=== PATIENT | male | born 1995 | race Caucasian/White ===

== ENCOUNTER 2018-05-22 20:43 | Emergency (ER) | payer OTHER ==
[2018-05-22] MEDS ORDERED: Lidocaine 1% 10 ML MDV INJECT ONE (22:13)
[2018-05-22] MEDS ORDERED: Lidocaine 1% 10 ML MDV ONE (22:35)
--- NOTE | 2018-05-22 23:00 | EDM.PDOC ---
ED HPI GENERAL MEDICAL PROBLEM - General Chief Complaint: Upper Extremity Injury/Pain Stated Complaint: LACERATION TO HAND Time Seen by Provider: 05/22/18 20:56 - History of Present Illness INITIAL COMMENTS - FREE TEXT/NARRATIVE: See dictation Onset: Today Treatments CLIENT CUSTOMER MANAGER: Reports: Dressing(s) Other Treatments CLIENT CUSTOMER MANAGER: wound cleanser left middle finger Pain Score (Numeric/FACES): 6 - Related Data Allergies Allergy/AdvReac Type Severity Reaction Status Date / Time No Known Allergies Allergy Verified 05/22/18 21:02 Home Meds: Home Meds . [No Known Home Meds] 05/22/18 [History] Past Medical History - Past Health History Medical/Surgical History: Denies Medical/Surgical History Social & Family History - Family History Family Medical History: Noncontributory - Tobacco Use Smoking Status *Q: Never Smoker - Caffeine Use Caffeine Use: Reports: Energy Drinks, Soda - Recreational Drug Use Recreational Drug Use: No Review of Systems - Review of Systems Review Of Systems: See Below ED EXAM, GENERAL - Physical Exam Exam: See Below Course - Vital Signs Last Recorded V/S: Last Vital Signs Temp 36.5 C 05/22/18 20:56 Pulse 69 05/22/18 20:56 Resp 18 05/22/18 20:56 BP 155/92 H 05/22/18 20:56 Pulse Ox 100 05/22/18 20:56 - Orders/Labs/Meds Orders: Active Orders 24 hr Category Date Time Status Fingers Third Digit Lt F2 [CR] Stat Exams 05/22/18 21:27 Taken Meds: Medications Discontinued Medications Generic Name Dose Route Start Last Admin Trade Name Perla PRN Reason Stop Dose Admin Lidocaine HCl 10 ml 05/22/18 22:13 Xylocaine 1% INJECT 05/22/18 22:14 ONETIME ONE Lidocaine HCl Confirm 05/22/18 22:35 Xylocaine 1% Administered 05/22/18 22:36 Dose 10 ml .ROUTE .STK-MED ONE Departure - Departure Time of Disposition: 22:56 Disposition: Home, Self-Care 01 Clinical Impression: Laceration of finger nail bed Qualifiers: Encounter type: initial encounter Qualified Code(s): S61.319A - Laceration without foreign body of unspecified finger with damage to nail, initial encounter - Discharge Information *PRESCRIPTION DRUG MONITORING PROGRAM REVIEWED*: Not Applicable *COPY OF PRESCRIPTION DRUG MONITORING REPORT IN PATIENT [place]: Not Applicable Referrals: PCP,None [Primary Care Provider] - Additional Instructions: Keep dressing clean and dry until you are seen in the clinic. If you experience increasing pain, swelling, drainage, or fever you should be seen. Followup in clinic on Thursday. - My Orders Last 24 Hours: My Active Orders 05/22/18 21:27 Fingers Third Digit Lt F2 [CR] Stat - Assessment/Plan Last 24 Hours: My Active Orders 05/22/18 21:27 Fingers Third Digit Lt F2 [CR] Stat
--- NOTE | 2018-05-23 00:17 | ER ---
REASON FOR EMERGENCY ROOM VISIT: Laceration and crush injury of left middle finger. HISTORY OF PRESENT ILLNESS: This 22-year-old man slammed his finger on the tailgate of a pickup, sustaining a crush type injury with a laceration at the distal tip of his left middle finger. He came to the emergency room shortly thereafter. He had a moderate amount of bleeding. No other injuries were incurred. His last tetanus booster was 2 years ago. He does still have sensation in his fingertip. He has suffered no other injuries. PAST MEDICAL HISTORY: Reviewed. See EMR. REVIEW OF SYSTEMS: Pertinent negatives and positives as in the HPI. CURRENT MEDICATIONS: Reviewed. See EMR. PHYSICAL EXAMINATION: VITAL SIGNS: See EMR. EXTREMITIES: Examination of his left hand, he has a moderately deep laceration over the tip of the distal left middle finger extending from the most medial aspect around approximately three-quarters of the finger just proximal to the proximal nail fold, which goes down to the level of the nail bed, and the proximal nail matrix is evulsed over the medial most two-thirds of the nail. The entire laceration is distal to the DIP joint. He does have sensation intact distally. Once the wound was explored, there was no exposed bone or tendon. There were no foreign bodies. FURTHER EMERGENCY ROOM COURSE: The patient's hand was soaked for about half-hour in chlorhexidine and water. It was washed and scrubbed because his hand had some dirt and oil on it. A digital block was performed with 1% plain Xylocaine, approximately 7 mL was used for this. An additional 3 mL was used to infiltrate along the wound itself to obtain an adequate digital block. I was able to reinsert the proximal nail bed below the level of the skin of the proximal most nail fold. One could see that the laceration did extend through the matrix itself, that I though I could approximate this reasonably well. Prior to doing this, we did obtain an x-ray of his finger, 3 views and there was no evidence of a fracture. The matrix was reapproximated with the proximal nail bed reinserted beneath the nail fold proximately to at least act as splint. There was no subungual hematoma at this time. Two [id number] sutures of 5-0 Ethilon were used to anchor the skin in the proximal nail fold to the nail itself in a full thickness fashion, which will also accomplish keeping the nail bed approximated adequately. These were placed in X-type configuration with an additional suture placed over the medial most aspect to gain adequate approximation. The patient understands that he may well lose the nail and that some of the skin may also slough away, but this should heal up quite nicely. Bacitracin ointment was placed over this generously and a nonadherent dressing was applied over which a Tubex guaze was applied and this was protected with a cage-type splint. He was instructed to keep this dressing clean and dry until he can be seen in the clinic and follow up on Thursday. His last tetanus shot being 2 years ago means that he does not need to have any today. All questions were answered. He understands and agrees. MACHELLE /[id number]
== END 2018-05-22 23:13 | disposition home or self-care (01) ==
LOC: JD.ED 20:43
DX: S61.313A Laceration without foreign body of left middle finger with damage to nail, initial encounter (principal); W23.0XXA Caught, crushed, jammed, or pinched between moving objects, initial encounter
CPT/HCPCS: 12001; 12031; 73140-F2; 99283-25

== ENCOUNTER 2018-05-24 11:22 | Emergency (ER) | payer OTHER ==
--- NOTE | 2018-05-24 12:08 | EDM.PDOC ---
ED HPI GENERAL MEDICAL PROBLEM - General Chief Complaint: Wound Recheck Stated Complaint: NEEDS STICANT LOOKED AT Time Seen by Provider: 05/24/18 11:54 Source of Information: Reports: Patient History Limitations: Reports: No Limitations - History of Present Illness INITIAL COMMENTS - FREE TEXT/NARRATIVE: Patient is a 22 year old male who presents to the E.D. for a wound recheck. Patient suffered laceration to the distal tip of the left middle finger. States he accidentally closed his finger in the tailgate causing the injury. Sutures placed by Dr. Zhu 05/22/2018. He was instructed to come back to the E.D. or clinic for wound recheck. Pain has been controlled with tylenol. 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 [No Known Home Meds] 05/22/18 [History] Past Medical History - Past Health History Medical/Surgical History: Denies Medical/Surgical History Social & Family History - Family History Family Medical History: Noncontributory - Tobacco Use Smoking Status *Q: Never Smoker - Caffeine Use Caffeine Use: Reports: None - Recreational Drug Use Recreational Drug Use: No ED ROS GENERAL - Review of Systems Review Of Systems: ROS reveals no pertinent complaints other than HPI. ED EXAM, SKIN/RASH Exam: See Below Exam Limited By: No Limitations General Appearance: Alert, WD/WN, No Apparent Distress Ears: Hearing Grossly Normal Nose: Normal Inspection Throat/Mouth: Normal Voice, No Airway Compromise Neck: Normal Inspection, Supple Respiratory/Chest: No Respiratory Distress, No Accessory Muscle Use Cardiovascular: Normal Peripheral Pulses, Regular Rate, Rhythm Peripheral Pulses: 2+: Radial (L), Radial (R) Extremities: Other (Left middle finger: Sutures present to the distal aspect of the finger intact. Skin is macerated with no sensory/motor deficits noted. Sutures through the nail bed holding the nail in place. Pain is localized minimal at this time.) Neurological: Alert, Oriented, CN II-XII Intact, Normal Cognition, No Motor/ Sensory Deficits Psychiatric: Normal Affect, Normal Mood Skin: Warm, Dry Course - Vital Signs Last Recorded V/S: Last Vital Signs Temp 98.1 F 05/24/18 11:31 Pulse 60 05/24/18 11:31 Resp 18 05/24/18 11:31 BP 146/81 H 05/24/18 11:31 Pulse Ox 99 05/24/18 11:31 - Re-Assessments/Exams Free Text/Narrative Re-Assessment/Exam: Dressing removed with nonadherent dressing saturated with dried blood. Will have dressing removed after gentle soak with sterile saline with chlorhexidine. No concerning findings on reexamination. Traveling about ointment and nonadherent dressing placed with a aluminum splint. Discharge instructions as documented. Departure - Departure Time of Disposition: 12:43 Disposition: Home, Self-Care 01 Condition: Good Clinical Impression: Laceration of finger nail bed Qualifiers: Encounter type: initial encounter Qualified Code(s): S61.319A - Laceration without foreign body of unspecified finger with damage to nail, initial encounter - Discharge Information Instructions: Laceration Care, Adult, [id number], Stitches, [place], or Adhesive Wound Closure Referrals: PCP,None [Primary Care Provider] - Forms: ED Department Discharge Additional Instructions: Please follow instructions by Dr. Zhu as previously documented. Sutures will come out in 10 days. See a provider at the clinic or return back to the ED to have these removed. Cleanse the site twice daily with soap and water, pat dry, reapply Triple Antibiotic ointment. Keep area clean and dry. Place a dressing on the affected finger if concern for getting it dirty. We've exposed to air while at home so the skin does not become macerated. Return to the ED if you develop any new or worsening symptoms.
== END 2018-05-24 12:49 | disposition home or self-care (01) ==
LOC: JD.ED 11:22
DX: S61.313D Laceration without foreign body of left middle finger with damage to nail, subsequent encounter (principal); W23.0XXD Caught, crushed, jammed, or pinched between moving objects, subsequent encounter
CPT/HCPCS: 99282; 99283